=== PATIENT | female | born 1985 | race Caucasian/White ===

== ENCOUNTER 2017-03-20 00:02 | Emergency (ER) | payer MEDICAID, OTHER ==
[~2017-03-20] VITALS: Ht 167.6 cm; Wt 68.0 kg
[2017-03-20 00:04] VITALS: BP 164/90; PULSE 99; RESP 14; TEMP 98.8; O2SAT 99
[2017-03-20] MEDS ORDERED: ONDANSETRON HCL 4 MG/2 ML VIAL IVP ONE (00:45)
[2017-03-20] MEDS ORDERED: SODIUM CHLOR 0.9% 1000 ML INJ 1,000 ML IV SCH (00:45)
--- NOTE | 2017-03-20 00:49 | PD ---
HPI Chief Complaint: Skin Problem Time Seen by Provider: 00:38 Travel History International Travel<30 days: No Contact w/Intl Traveler<30days: No Traveled to known affect area: No History of Present Illness HPI 31-year-old female complains of sunburn, nausea vomiting and abdominal cramping. Patient states that she has been outside in the sun for the last 2 days. Patient states that she started having epigastric discomfort and nausea vomiting today. Patient denies any headache. Patient denies any chest pain or shortness of breath. Patient denies any dysuria or frequency. Patient denies any fever chills. PFSH Past Medical History Medical History: Denies Significant Hx ?: Not : 0 Past Surgical History Cholecystectomy: Yes Social History Alcohol Use: No Tobacco Use: Yes (1 ppd) Substance Use: No Allergies-Medications (Allergen,Severity, Reaction): Coded Allergies: No Known Allergies (Unverified , 03/20/17) Reported Meds & Prescriptions Reported Meds & Active Scripts Active No Active Prescriptions or Reported Medications Review of Systems General / Constitutional: No: Fever Eyes: No: Visual changes HENT: No: Headaches Cardiovascular: No: Chest Pain or Discomfort Respiratory: No: Shortness of Breath Gastrointestinal: Positive: Nausea, Vomiting, Abdominal Pain Genitourinary: No: Dysuria Musculoskeletal: No: Pain Skin: No Rash Neurologic: No: Weakness Psychiatric: No: Depression Endocrine: No: Polydipsia Hematologic/Lymphatic: No: Easy Bruising Physical Exam Narrative GENERAL: Well-nourished, well-developed patient. SKIN: Focused skin assessment warm/dry. Reddish of the skin on the face, chest , abdomen, back, extremity. No blister noted. HEAD: Normocephalic. EYES: No scleral icterus. No injection or drainage. NECK: Supple, trachea midline. No JVD or lymphadenopathy. CARDIOVASCULAR: Regular rate and rhythm without murmurs, gallops, or rubs. RESPIRATORY: Breath sounds equal bilaterally. No accessory muscle use. GASTROINTESTINAL: Abdomen soft, nondistended. Mild tenderness on palpation epigastric area. No rebound tenderness. No mass. MUSCULOSKELETAL: No cyanosis, or edema. BACK: Nontender without obvious deformity. No CVA tenderness. Neurologic exam normal. Data Data Last Documented VS Vital Signs Date Time Temp Pulse Resp B/P Pulse Ox O2 Delivery O2 Flow Rate FiO2 03/20/17 00:04 98.8 99 14 164/90 99 Room Air Orders Comprehensive Metabolic Panel (03/20/17 00:45) Lipase (03/20/17 00:45) Iv Access Insert/Monitor (03/20/17 00:45) Ondansetron Inj (Zofran Inj) (03/20/17 00:45) Sodium Chlor 0.9% 1000 Ml Inj (Ns 1000 M (03/20/17 00:45) Labs Laboratory Tests Test 03/20/17 00:45 Sodium Level 137 MEQ/L Potassium Level 3.4 MEQ/L Chloride Level 104 MEQ/L Carbon Dioxide Level 24.4 MEQ/L Anion Gap 9 MEQ/L Blood Urea Nitrogen 3 MG/DL Creatinine 0.67 MG/DL Estimat Glomerular Filtration 103 ML/MIN Rate Random Glucose 94 MG/DL Calcium Level 8.1 MG/DL Total Bilirubin 0.7 MG/DL Aspartate Amino Transf 32 U/L (AST/SGOT) Alanine Aminotransferase 32 U/L (ALT/SGPT) Alkaline Phosphatase 110 U/L Total Protein 6.8 GM/DL Albumin 3.6 GM/DL Lipase 105 U/L [facility] Medical Decision Making Medical Screen Exam Complete: Yes Emergency Medical Condition: Yes Interpretation(s) 2:22 AM. Potassium 3.4. CMP was within normal limit. Differential Diagnosis Differential diagnosis including first-degree sunburn, dehydration, electrolyte imbalance, gastritis, PUD, and otitis, cholecystitis, colitis, UTI, pyelonephritis. Narrative Course 31-year-old female with epigastric abdominal cramping and nausea vomiting. Patient has been outside in the sun for the past 2 days. Normal saline solution 1 L IV bolus. Zofran 4 mg IV. Diagnosis Primary Impression: Heat exhaustion Qualified Code: T67.5XXA - Heat exhaustion, initial encounter Additional Impression: First degree sunburn Patient Instructions: General Instructions Additional Instructions: Zofran as needed for nausea vomiting. Follow-up with personal physician. Encourage by mouth fluid. Return if worse. Stay out of the sun. Med/Other Pt SpecificInfo: Prescription(s) given Scripts Ondansetron Odt (Zofran Odt)4 Mg Tab4 Mg SL Q6HR PRN (Nausea/Vomiting) #10 TAB Prov:Avi Murphy MD 03/20/17 Disposition: 01 DISCHARGE HOME Condition: Stable Avi Murphy MD Mar 20, 2017 00:49
[2017-03-20 01:31] LABS: ALT (GPT) 32 U/L (10-53); ANION GAP 9 MEQ/L (5-15); AST (GOT) 32 U/L (15-37); BICARBONATE 24.4 MEQ/L (21.0-32.0); BLOOD UREA NITROGEN 3 MG/DL (7-18); CHLORIDE 104 MEQ/L (98-107); GLOMERULAR FILTRATION RATE 103 ML/MIN (>89); POTASSIUM 3.4 MEQ/L (3.5-5.1); SODIUM (NA) 137 MEQ/L (136-145)
[2017-03-20 01:33] LABS: ALKALINE PHOSPHATASE 110 U/L (45-117); TOTAL BILIRUBIN ADULT 0.7 MG/DL (0.2-1.0)
[2017-03-20] MEDS ORDERED: ZOFR4TAB3 SL (02:26)
== END 2017-03-20 03:06 | disposition home or self-care (01) ==
LOC: NEPC 00:02
DX: L55.0 Sunburn of first degree (principal); R11.2 Nausea with vomiting, unspecified
CPT/HCPCS: 80053; 83690; 96361; 96374; 99284; J2405; J7030